=== PATIENT | male | born 1960 | race Hispanic/Latino ===

== ENCOUNTER → 2019-04-02 | Outpatient (CLI) | payer OTHER ==
--- NOTE | 2019-04-02 12:25 | REP ---
LEFT HAND, FOUR VIEWS: HISTORY: Pain. There is no acute fracture or dislocation. There is narrowing of the 2nd through 5th distal interphalangeal joints. Osteophytes are present at the interphalangeal joint of the 1st digit and distal interphalangeal joints of the 2nd and 5th digits. A subchondral cyst is present in the intermediate phalange of the 3rd digit. Multiple small metallic foreign bodies are present in the soft tissue overlying the heads of the 4th and 5th metacarpals. IMPRESSION: Degenerative change, as described above. Electronically Signed by Duy Sanchez MD 04/02/2019 12:26 P
--- NOTE | 2019-04-02 12:32 | REP ---
LUMBAR SPINE, FIVE VIEWS: HISTORY: Back pain. There is no acute fracture or subluxation. The intervertebral discs are decreased in height. Vacuum phenomenon is present at the L4-5 level. These findings are consistent with disc degeneration. Osteophytes are present throughout the lumbar spine. There is narrowing of the L5-S1 facet joints. IMPRESSION: Degenerative change as described above. Electronically Signed by Duy Sanchez MD 04/02/2019 12:37 P
--- NOTE | 2019-04-02 12:42 | REP ---
Bilateral knee radiographs: 10 views. History: Question rheumatoid arthritis. Pain. Findings: Overall mineralization appears normal. There is moderate three compartment bilateral osteoarthritic spurring. This is most pronounced in the patellofemoral compartments of each knee. There is mild patellofemoral compartment joint space narrowing bilaterally. No erosive changes seen. There is a normal fabella present bilaterally. Impression: Moderate three compartment bilateral knee joint osteoarthritis. Electronically Signed by Trevor Babb MD 04/02/2019 03:45 P
== END ==
LOC: M RAD 08:47
PROVIDERS: ATTEND Surgery
DX: M06.9 Rheumatoid arthritis, unspecified (principal)